=== PATIENT | female | born 1965 | race Asian ===

== ENCOUNTER → 2018-03-12 | Outpatient (CLI) | payer OTHER | LOC: FIMAGING 08:28 | PROVIDERS: ATTEND Radiology Diagnostic Radiology | DX: I83.812 Varicose veins of left lower extremity with pain (principal) ==

== ENCOUNTER 2018-07-17 07:24 | Day surgery (SDC) | payer OTHER ==
[2018-07-17] MEDS ORDERED: LIDO/EPI 1% **for epidural** 30 ML SDV ONE (08:02)
[2018-07-17] MEDS ORDERED: SODIUM TETRADECYL SULFATE 3% 2 ML VIAL IV ONE (08:03)
[2018-07-17] MEDS ORDERED: NALOXONE HCL 0.4 MG/ML INJ IVP PRN (08:05)
[2018-07-17] MEDS ORDERED: ONDANSETRON 4 MG/2 ML VIAL IVP ONE (08:05)
[2018-07-17] MEDS ORDERED: MIDAZOLAM 2 MG/2 ML VIAL IVP PRN (08:05)
[2018-07-17] MEDS ORDERED: MEPERIDINE 25 MG/ML SYR IVP PRN (08:05)
[2018-07-17] MEDS ORDERED: fentaNYL 100 MCG/2 ML INJ IVP PRN (08:05)
[2018-07-17] MEDS ORDERED: ceFAZolin 2 GM/DEXTROSE 100 ML IV ONE (08:05)
[2018-07-17] MEDS ORDERED: NS 1,000 ML IV ONE (08:05)
[2018-07-17] MEDS ORDERED: FLUMAZENIL 0.5 MG/5 ML MDV IVP PRN (08:05)
[2018-07-17] MEDS ORDERED: ONDANSETRON 4 MG/2 ML VIAL IVP PRN (10:51)
[2018-07-17] MEDS ORDERED: ACETAMINOPHEN 325 MG TAB PO PRN (10:51)
--- NOTE | 2018-07-17 10:53 | PDPROPOC ---
Sedation Plan of Care Sedation Plan of Care: vital signs stable, mental status noted, patient educated of risks, benefits, alternatives, patient can tolerate sedation ASA Classification: ASA 1 Planned drugs: fentanyl, midazolam Mallampati Score: Class 2 Mallampati Reference Image: Patient passed 3-3-2 rule?: Yes
[2018-07-17 12:02] VITALS: BP 116/73
--- NOTE | 2018-07-17 12:47 | PDGENHP ---
History & Physical Chief Complaint: RLE pain and swelling History of Present Illness: RLE varicose veins. Pertinent Past, Social, Family History: NON SMOKER Relevant Physical Exam: ROPEY VEINS MAPPED OUT. Cardiorespiratory Assessment: CTA, RRR
--- NOTE | 2018-07-17 12:49 | PDRADPN ---
Radiology Procedure Note Date of Procedure: 07/17/18 Radiologist: Lady Mcguire Anesthesia: IV Sedation Pre-op Diagnosis: RLE VARICOSE VEINS Post-op Diagnosis: SAME Indication: PAIN AND SWELLING, LUMP BEHIND KNEE Procedure: LASER, SCHLEROTHERAPY Inf/Abcess present in the surg proc area at time of surgery?: No
== END 2018-07-17 12:05 | disposition home or self-care (01) ==
LOC: FIMAGING 07:24
PROVIDERS: ATTEND Radiology Diagnostic Radiology
PROC: 3E033TZ Introduction of Destructive Agent into Peripheral Vein, Percutaneous Approach (ICD-10-PCS; principal; 2018-07-17 10:27)
PROC: 065P3ZZ Destruction of Right Saphenous Vein, Percutaneous Approach (ICD-10-PCS; principal; 2018-07-17 10:27)
DX: I83.891 Varicose veins of right lower extremity with other complications (principal)
CPT/HCPCS: J0690; J2250; J2310; J2405; J3010

== ENCOUNTER → 2018-07-28 | Outpatient (CLI) | payer OTHER | LOC: FIMAGING 16:04 | PROVIDERS: ATTEND Radiology Diagnostic Radiology | DX: I83.90 Asymptomatic varicose veins of unspecified lower extremity (principal) ==